=== PATIENT | female | born 1975 | race Caucasian/White ===

== ENCOUNTER 2018-07-25 12:27 | Emergency (ER) | payer BC ==
[2018-07-25] MEDS ORDERED: HYDROmorphONE 1 MG/ML SYG IV (13:48)
[2018-07-25] MEDS: HYDROmorphONE 2 MG/ML SYG IM (14:07)
[2018-07-25] MEDS: predniSONE 20 MG TAB PO (14:07)
== END 2018-07-25 14:40 | disposition home or self-care (01) ==
LOC: FTE 12:27
DX: S89.92XA Unspecified injury of left lower leg, initial encounter (principal); X58.XXXA Exposure to other specified factors, initial encounter; Y92.9 Unspecified place or not applicable
CPT/HCPCS: 96372; 99284-25

== ENCOUNTER 2019-04-30 20:08 | Emergency (ER) | payer BC ==
[2019-04-30] MEDS: KETOROLAC 30 MG INJ IM (22:21)
[2019-04-30] MEDS: HYDROCODONE/APAP (10/325) TAB PO (23:23)
== END 2019-04-30 23:33 | disposition home or self-care (01) ==
LOC: FTE 20:08
DX: S52.592A Other fractures of lower end of left radius, initial encounter for closed fracture (principal); W01.0XXA Fall on same level from slipping, tripping and stumbling without subsequent striking against object, initial encounter; Y92.9 Unspecified place or not applicable
CPT/HCPCS: 29125; 73090; 73110-LT; 73130-LT; 81025; 96372; 99284-25